=== PATIENT | male | born 1960 | race Caucasian/White ===

== ENCOUNTER 2019-10-18 14:08 | Emergency (ER) | payer MEDICAID ==
[~2019-10-18] VITALS: Ht 167.6 cm; Wt 64.4 kg
--- NOTE | 2019-10-18 14:11 | NUR ---
Patient to ER bed 8 to gown for evaluation. Side rails up. Report given to HAN Buitrago.
[2019-10-18 14:13] VITALS: BP_SYST 146
--- NOTE | 2019-10-18 14:15 | NUR ---
Patient is awake, alert, and oriented x4. Patient reports being in and out of [facility] ER, last recieved a [employer] there. States he has had a rapid heart rate x5 days and came here due to his sister's urging. HR is currently at 80.
--- NOTE | 2019-10-18 14:25 | NUR ---
ER Dr. Delatorre at bedside examining patient.
[2019-10-18] MEDS ORDERED: ONDANSETRON HCL 4 MG/2 ML VIAL IVP ONE (15:00)
[2019-10-18] MEDS ORDERED: LORazepam 2 MG/ML VIAL IVP ONE (15:00)
[2019-10-18 15:01] LABS: BASOPHILS # (AUTO) 0.1 K/uL (0.0-0.2); BASOPHILS % (AUTO) 1.1 % (0.0-2.0); EOSINOPHILS # (AUTO) 0.1 K/uL (0.0-0.4); EOSINOPHILS % (AUTO) 2.1 % (0.0-4.0); HEMATOCRIT 47.9 % (36-54); HEMOGLOBIN 16.3 g/dL (14.0-18.0); LYMPHOCYTES # (AUTO) 1.6 K/uL (1.0-5.5); LYMPHOCYTES % (AUTO) 27.9 % (20.5-51.5); MEAN CORPUSCULAR HEMOGLOBIN 32 pg (27-31); MEAN CORPUSCULAR HGB CONC 34 % (32-36); MEAN CORPUSCULAR VOLUME 94 fL (79.0-98.0); MONOCYTES # (AUTO) 0.5 K/uL (0.0-1.0); MONOCYTES % (AUTO) 8.5 % (1.7-9.3); NEUTROPHILS # (AUTO) 3.5 K/uL (1.8-7.7); NEUTROPHILS % (AUTO) 60.4 % (40.0-70.0); PLATELET COUNT (AUTO) 268 K/uL (130-430); RED BLOOD CELL COUNT(AUTO) 5.08 MIL/uL (4.2-6.2); WHITE BLOOD COUNT (AUTO) 5.9 K/uL (4.8-10.8)
[2019-10-18 15:09] LABS: ANION GAP 7 (5-15); CHLORIDE 104 mmol/L (98-107); CREATININE 0.89 mg/dL (0.55-1.30); GLUCOSE 110 mg/dL (70-99); POTASSIUM 3.8 mmol/L (3.5-5.1); SODIUM SERUM 137 mmol/L (136-145); UREA NITROGEN, BLOOD 6 mg/dL (8-21)
[2019-10-18 15:10] LABS: GFR AFRICAN AMERICAN 113 mL/min (>90)
[2019-10-18 15:18] LABS: ALANINE AMINOTRANSFERASE 27 U/L (12-78); ASPARTATE AMINOTRANSFERASE 18 U/L (10-37); TOTAL BILIRUBIN 0.5 mg/dL (0.0-1.0)
--- NOTE | 2019-10-18 15:22 | NUR ---
Patient is calling his room mate for a ride.
--- NOTE | 2019-10-18 15:23 | NUR ---
Dr. Delatorre in to talk to patient.
[2019-10-18 15:24] VITALS: BP_SYST 136
--- NOTE | 2019-10-18 15:24 | NUR ---
Patient given written and verbal discharge instructions and verbalizes understanding. ER MD discussed with patient the results and treatment provided. Patient in stable condition. ID arm band removed. IV catheter removed intact and dressing applied, no active bleeding. Rx of ativan given. Patient educated on pain management and to follow up with PMD. Pain Scale 0/10. Opportunity for questions provided and answered. Medication side effect fact sheet provided.
--- NOTE | 2019-10-18 15:48 | NUR ---
Patient stated his roommate was on his way. He was noted getting in a black [id number] [employer] Sherry and driving out of the parking lot.
== END 2019-10-18 15:24 | disposition home or self-care (01) ==
LOC: SED 14:08
DX: F41.9 Anxiety disorder, unspecified (principal); K21.9 Gastro-esophageal reflux disease without esophagitis; I10 Essential (primary) hypertension; Z88.1 Allergy status to other antibiotic agents
CPT/HCPCS: 36415; 80053; 84484; 85025; 93005; 96374; 96375; 99284; J2060; J2405

== ENCOUNTER 2021-07-13 20:04 | Emergency (ER) | payer MEDICAID ==
[~2021-07-13] VITALS: Ht 172.7 cm; Wt 63.5 kg
[2021-07-13 20:16] VITALS: BP_SYST 140
--- NOTE | 2021-07-13 20:30 | NUR ---
PT TO REMAIN IN THE ER LOBBY UNTIL ER BED BECOMES AVAILABLE.
[2021-07-13] MEDS ORDERED: ONDANSETRON 4 MG ODT TAB ONE (21:23)
[2021-07-13] MEDS ORDERED: ONDANSETRON 4 MG ODT TAB PO ONE (21:30)
--- NOTE | 2021-07-13 22:05 | NUR ---
PT TO BED 2 FOR EVALUATION. PT GOWNED AND ATTACHED TO MONITOR.
--- NOTE | 2021-07-13 22:06 | NUR ---
Came in ER ambulatory from home this 61 year old male, AAOX4, breathing spontaneously at room air, not in distress noted. With chief complaits of Abdominal pain, nausea/ vomiting since yesterday, known case of HTN, IBS, Anxiety, with multiple allergies. Vital signs stable
--- NOTE | 2021-07-13 22:11 | NUR ---
Seen and examined by Dr. Castillo, ER Attending
--- NOTE | 2021-07-13 22:55 | NUR ---
# 20 gauge angiocath placed to left hand. Use of asceptic technique. Opsite placed over site. Blood return noted. Blood for lab drawn from site. Flushed with 10 cc of normal saline. No evidence of infiltration noted. Patient tolerated well.
[2021-07-13 23:34] LABS: BASOPHILS # (AUTO) 0.1 K/uL (0.0-0.2); EOSINOPHILS # (AUTO) 0.1 K/uL (0.0-0.4); EOSINOPHILS % (AUTO) 0.8 % (0.0-4.0); HEMOGLOBIN 16.2 g/dL (14.0-18.0); LYMPHOCYTES # (AUTO) 1.5 K/uL (1.0-5.5); LYMPHOCYTES % (AUTO) 18.1 % (20.5-51.5); MEAN CORPUSCULAR HEMOGLOBIN 31 pg (27-31); MEAN CORPUSCULAR HGB CONC 34 % (32-36); MEAN CORPUSCULAR VOLUME 91 fL (79.0-98.0); MONOCYTES # (AUTO) 0.7 K/uL (0.0-1.0); MONOCYTES % (AUTO) 8.1 % (1.7-9.3); NEUTROPHILS # (AUTO) 6.2 K/uL (1.8-7.7); PLATELET COUNT (AUTO) 271 K/uL (130-430); RED BLOOD CELL COUNT(AUTO) 5.17 MIL/uL (4.2-6.2); RED CELL DISTRIBUTION WIDTH 13.7 % (9.0-15.0); WHITE BLOOD COUNT (AUTO) 8.5 K/uL (4.8-10.8)
[2021-07-13 23:45] LABS: CALCIUM 9.8 mg/dL (8.4-11.0); CREATININE 1.03 mg/dL (0.55-1.30); POTASSIUM 3.8 mmol/L (3.5-5.1)
[2021-07-13 23:51] LABS: ALBUMIN 4.3 g/dL (3.4-4.8); TOTAL BILIRUBIN 0.6 mg/dL (0.0-1.0)
[2021-07-13 23:51] LABS: BILIRUBIN,URINE NEGATIVE (NEGATIVE); BLOOD, URINE NEGATIVE (NEGATIVE); CLARITY/URINE CLEAR (CLEAR); COLOR,URINE YELLOW (YELLOW); GLUCOSE,URINE NEGATIVE (NEGATIVE); KETONES,URINE 3+ (NEGATIVE); LEUKOCYTE ESTERASE ,URINE NEGATIVE (NEGATIVE); NITRITE, URINE NEGATIVE (NEGATIVE); PROTEIN URINE NEGATIVE (NEGATIVE); UROBILINOGEN,URINE 0.2 (0.2-1.0)
[2021-07-14] MEDS ORDERED: LORazepam 2 MG/ML VIAL IVP ONE
--- NOTE | 2021-07-14 00:04 | NUR ---
Apparently Anxious, Ativan 0.5mg IV push slowly given as ordered by Dr. Hussein.
--- NOTE | 2021-07-14 00:12 | NUR ---
Patient transported to radiology (ct scan abdomen) via wheelchair in stable condition, accompanied by information technology intern.
[2021-07-14 00:19] LABS: BACTERIA,URINE FEW /HPF (None Seen); RBC,URINE 0-3 /HPF (0-3); WBC,URINE 0-3 /HPF (0-3)
--- NOTE | 2021-07-14 00:25 | NUR ---
Returned from radiology, back to [facility].
[2021-07-14] MEDS ORDERED: NACL 0.9% 1,000 ML IV ONE (00:45)
[2021-07-14] MEDS ORDERED: ONDANSETRON HCL 4 MG/2 ML VIAL IVP ONE (01:45)
--- NOTE | 2021-07-14 01:50 | NUR ---
Still nauseated, Zofran 4mg IV push once given as ordered, health teaching provided and verbalized undestanding
[2021-07-14] MEDS ORDERED: FAMO-132 PO (02:50)
--- NOTE | 2021-07-14 02:58 | NUR ---
Re-assesed by Dr. Hussein, for Pepcid IV then discharge
[2021-07-14] MEDS ORDERED: FAMOTIDINE PF 20 MG/2 ML VIAL IVP ONE (03:00)
[2021-07-14] MEDS ORDERED: FAMOTIDINE PF 20 MG/2 ML VIAL ONE (03:04)
[2021-07-14 03:10] VITALS: BP_SYST 143
--- NOTE | 2021-07-14 03:10 | NUR ---
Patient given written and verbal discharge instructions and verbalizes understanding. ER MD discussed with patient the results and treatment provided. Patient in stable condition. ID arm band removed. IV catheter removed intact and dressing applied, no active bleeding. Rx of Pepcid given. Patient educated on pain management and to follow up with PMD. Pain Scale 0/10. Opportunity for questions provided and answered. Medication side effect fact sheet provided.
== END 2021-07-14 03:10 | disposition home or self-care (01) ==
LOC: SED 20:04
DX: R10.13 Epigastric pain (principal); R11.10 Vomiting, unspecified; I10 Essential (primary) hypertension; F31.9 Bipolar disorder, unspecified; K21.9 Gastro-esophageal reflux disease without esophagitis; Z79.899 Other long term (current) drug therapy
CPT/HCPCS: 36415; 74176; 76376; 80053; 81000; 83690; 84484; 85025; 93005; 96361; 96374; 96375; 99285; J2060; J2405; J3490; J7030; Q0162